=== PATIENT | male | born 1995 | race Caucasian/White ===

== ENCOUNTER 2020-03-21 09:44 | Day surgery (SDC) | payer OTHER ==
[2020-03-21] MEDS ORDERED: MIDAZOLAM 2 MG/2 ML INJ ONE ×2 (10:03→10:43)
[2020-03-21] MEDS ORDERED: FENTANYL CITRATE INJ/PF 100 MCG/2 ML AMPUL ONE ×2 (10:03→10:44)
[2020-03-21] MEDS ORDERED: PROPOFOL INJ 200 MG/20 ML VIAL IV ONE (10:04)
[2020-03-21] MEDS ORDERED: ONDANSETRON HCL INJ/PF 4 MG/2 ML SDV ONE (10:04)
[2020-03-21] MEDS ORDERED: DEXAMETHASONE SOD PHOSPHATE INJ 4 MG/1 ML VIAL ONE (10:04)
[2020-03-21] MEDS ORDERED: CEFAZOLIN 2 GM/D5W RTU 2 GM/50 ML RTUPB IV ONE (10:33)
[2020-03-21] MEDS ORDERED: ROPIVACAINE HCL 0.5% INJ/PF (5 MG/1 ML) 30 ML SDV ONE (10:44)
[2020-03-21] MEDS ORDERED: ONDANSETRON HCL INJ/PF 4 MG/2 ML SDV IV PRN ×2 (13:54→15:03)
[2020-03-21] MEDS ORDERED: DIPHENHYDRAMINE HCL 50 MG/ML VIAL IV PRN (13:54)
[2020-03-21] MEDS ORDERED: OXYCODONE-ACETAMINOPHEN 5-325 MG TABLET PO PRN ×2 (13:54→15:03)
[2020-03-21] MEDS ORDERED: PROMETHAZINE HCL INJ 25 MG/1 ML VIAL IV PRN ×2 (13:54)
[2020-03-21] MEDS ORDERED: MORPHINE SULFATE 10 MG/ML INJ IV PRN (13:54)
[2020-03-21] MEDS ORDERED: FENTANYL CITRATE INJ/PF 100 MCG/2 ML AMPUL IV PRN ×3 (13:54)
--- NOTE | 2020-03-21 15:09 | Discharge Summary ---
Discharge Summary (SDC) - Discharge Final Diagnosis: Left elbow dislocation with radial head fracture, loose bodies lateral ulnar collateral ligament tear. Date of Surgery: 03/21/20 Discharge Date: 03/21/20 Condition: Good Forms: Return to Work Treatment or Instructions: Schedule Follow Up w/ Dr. Manpreet Katz @ [facility] to be seen in 10-14 days or as scheduled [place]: [place]: [place]: Ice and elevate Keep splint clean/dry/intact, do not remove. If your fingers become numb please unwrap the Fernando wrap but leave the splint in place, if the sensation does not return within 30 minutes please return to the emergency department. May begin finger range of motion attempting to make full fist. Please use ibuprofen (Motrin or Advil) 600-800 mg every 8 hours as needed for pain or fever DO NOT TAKE w/ TORADOL may use once TORADOL complete. You may also use acetaminophen (Tylenol) 1000 mg every 4-6 hours as needed for pain or fever. Please be aware that many medications contain acetaminophen, do not exceed a total of 1000 mg of acetaminophen every 6 hours. If ibuprofen and acetaminophen are not sufficient for your pain you may take the Percocet/[place]. Please be aware that the Percocet/[place] does contain Tylenol. Stool softener of choice when on pain medication. USE OF [id number] IBUPROFEN: Ibuprofen (Advil, Nuprin, Medipren, Motrin IB) is a medication for fever and pain control. In addition, it has anti- inflammatory effects which may be beneficial, especially in the treatment of injuries. It's best to take ibuprofen with food. Persons with ulcer disease or allergy to aspirin should notify their physician of this before taking ibuprofen. Ibuprofen can be given every four to six hours, for a total of four doses daily. Age Pain or fever dose Antiinflammatory dose 6-8 yr 200 mg (1 tab) 200 mg (1 tab) 9-11 yr 200 mg (1 tab) 200-400 mg (1-2 tab) 11-14 yr 200-400 mg (1-2 tab) 400 mg (2 tab) 15-adult 400 mg (2 tab) 600 mg (3 tab) ORAL NARCOTIC MEDICATION: You have been given a prescription for pain control. This medication is a narcotic. It's best taken with food, as nausea can result if taken on an empty stomach. Don't operate machinery or drive within six hours of taking this medication. Do not combine this medicine with alcohol, or with any medication which can cause sedation (such as cold tablets or sleeping pills) unless you get permission from the physician. Narcotics tend to cause constipation. If possible, drink plenty of fluids and eat a diet high in fiber and fruits. Please be aware that prescription narcotics also have the potential for abuse. People become addicted to these medications because of the general sense of wellbeing that they induce. This feeling along with a significant reduction in tension, anxiety, and aggression provides a stimulating seductive quality to these drugs. Once your pain is under control, we encourage you to discard your unused narcotics. Prescriptions: Ketorolac Tromethamine [Toradol 10 mg Tablet] 10 mg PO Q8HP PRN #12 tablet PRN Reason: Oxycodone HCl/Acetaminophen [Percocet 7.5-325 mg Tablet] 1 tab PO Q6 PRN #25 tab PRN Reason: Discharge Diet: As Tolerated Respiratory Treatments at Home: Deep Breathing/Coughing, Incentive Spirometer Discharge Activity: No Lifting Over 10 Pounds, No Lifting/Push/Pulling Report the Following to Your Physician Immediately: Fever over 101 Degrees, Unusual Bleeding, Redness, Swelling, Warmth, Increased Soreness
[2020-03-21] MEDS: FENTANYL CITRATE INJ/PF 100 MCG/2 ML AMPUL ONE ×2 (15:10→15:15)
--- NOTE | 2020-03-21 15:16 | Operative Report ---
Operative Report DATE OF SURGERY: 03/21/20 PREOPERATIVE DIAGNOSIS: Left elbow dislocation with radial head fracture, loose bodies lateral ulnar collateral ligament tear. POSTOPERATIVE DIAGNOSIS: Left elbow dislocation with radial head fracture, loose bodies lateral ulnar collateral ligament tear. OPERATION: Removal of loose bodies left elbow with lateral ulnar collateral ligament repair utilizing internal brace SURGEON: MARTHA THOMPSON ANESTHESIA: GA COMPLICATIONS: None ESTIMATED BLOOD LOSS: Minimal PROCEDURE: Indication for above procedure: 24-year-old male who sustained an injury to his left elbow resulting in a fracture dislocation. Elbow was then close reduced. He was then seen at [facility] well radiographs and CT scan were done demonstrating radial head fracture. CT scan demonstrated loose bodies from the radial head fracture at that point we discussed treatment options including operative versus nonoperative intervention after discussing risk and benefits decision was made to proceed with operative treatment. Procedure In Detail: Patient was seen and evaluated in the preoperative holding area. The LEFT upper extremity was initialized and marked. Patient received 2g of Ancef IV for bacterial prophylaxis. Patient was taken back to the operative room where transferred to the operative table and placed under general anesthesia. Once they were adequately anesthetized a nonsterile tourniquet was placed on the upper extremity. A surgical team debriefing was performed ensuring all instrumentation was available, the surgical procedure was discussed with possible concerns reviewed. The upper extremity was prepped with ChloraPrep and draped in a sterile fashion. A timeout was done identifying correct patient, procedure and extremity everyone in attendance agree with this and verbalized no concerns. The extremity was exsanguinated the tourniquet was inflated to 250 mmHg. Longitudinal skin incision was made centered over the lateral epicondyle. Blunt dissection was performed. Any peripheral veins were coagulated Interval between between EDC and ECRB was then utilized. Forearm remained in pronation throughout the majority of the procedure to protect the PIN. Once interval was utilized complete tear of the lateral ulnar collateral ligament was appreciated. Loose bodies from the prior radial head fracture were identified and removed. Joint was copiously irrigated with normal saline. Intervening hematoma was excised. C arm fluoroscopy was then obtained demonstrating successful removal of loose bodies there was small rim of cartilage within the deep soft tissues which is likely adjacent to the PIN and thus this was not removed nor could be visualized. Patient had instability with elbow range of motion at that point decision was made to proceed with lateral ulnar collateral ligament repair. The radial head fracture involves less than 50% of the articular surface with pronation/supination under direct visualization and fluoroscopy there was no evidence of radial head impingement at the proximal radial ulnar joint. No crepitus with range of motion. And thus arthroplasty was not performed nor internal fixation. There was a nondisplaced intra-articular fracture which was unstable under direct stress with a [place] and pickup and thus will be treated conservatively. Under live C-arm fluoroscopy isometric point of the lateral epicondyle was identified. This was then drilled with for a 3.5 mm push lock anchor. A Krakw suture was placed through the lateral ulnar collateral ligament also obtaining fixation within the annular ligament. One limb was placed and then a second limb placed leaving 2 limbs proximally. The 2 limbs were then loaded on the 3.5 mm anchor along with a fiber tape suture this was then secured at the isometric point. Good fixation of the anchor was confirmed with push and pull test. With palpation and C arm fluoroscopy supinator crest was identified. This was once again drilled and tapped. The fiber tape suture was then loaded on the 3.5 mm anchor maintaining reduction of the ulnohumeral and radiocapitellar joint with the forearm in pronation and elbow at 45 degrees of flexion the anchor was implanted obtaining good fixation. Elbow was placed through full range of motion without significant tightness. No evidence of instability with range of motion stress testing. C arm fluoroscopy was obtained demonstrating reduction of the ulnohumeral and radiocapitellar joint. Wound was copiously irrigated with normal saline. Merchant's interval was closed with 0 Vicryl suture. Subcutaneous tissues were closed with 4-0 Monocryl suture. Skin was closed with running subcuticular 4-0 Monocryl reinforced with Dermabond and Steri-Strips. Patient was placed in a posterior elbow splint with the elbow approximately 60 degrees of flexion. Sponge counts, instrument counts, needle counts were correct. Patient was then awoken from anesthesia. Transferred from the operating room table to the operating room stretcher. There was no intraoperative complications patient tolerated procedure well stable to PACU. IMPLANTS: Arthrex 3.5 mm swivel lock anchors Postop plan: Patient will begin occupational therapy on postop day #10. Will be fitted for a hinged elbow brace prior to beginning therapy locked at 60 degrees of flexion un til therapy begins. Will begin as per lateral ulnar collateral ligament repair.
[2020-03-21] MEDS: MEPERIDINE HCL/PF INJ 25 MG/1 ML DISP.SYRIN IV PRN ×2 (15:25→15:30)
[2020-03-21] MEDS ORDERED: MEPERIDINE HCL/PF INJ 25 MG/1 ML DISP.SYRIN ONE (15:25)
--- NOTE | 2020-03-21 15:31 | RADIOLOGY REPORT (SQ) ---
EXAM DESCRIPTION: ELBOW LEFT AP/LATERAL IMAGES COMPLETED DATE/TIME: 03/21/2020 3:20 pm REASON FOR STUDY: LEFT ELBOW ORIF S53.105A UNSP DISLOCATION OF LEFT ULNOHUMERAL JOINT, INIT EN COMPARISON: None. FLUOROSCOPY TIME: 1.0 minutes 5 images saved to PACS. TECHNIQUE: Intra-operative images acquired during surgical procedure to evaluate progress. NUMBER OF IMAGES: 5 LIMITATIONS: None. FINDINGS: Fluoroscopic images centered over the elbow IMPRESSION: IMAGE(S) OBTAINED DURING PROCEDURE. COMMENT: Quality ID [id number]: Final reports for procedures using fluoroscopy that document radiation exp osure indices, or exposure time and number of fluorographic images (if radiation exposure indices are not available) Please consult full operative report of the attending physician for description of the procedure. TECHNICAL DOCUMENTATION: JOB ID: [id number] 2010 [facility]- All Rights Reserved Reading location - IP/workstation name: [email or web address]
--- NOTE | 2020-03-21 15:32 | RADIOLOGY REPORT (SQ) ---
EXAM DESCRIPTION: NO CHG FLUORO COMPLETE DATE/TIME: 03/21/2020 3:20 pm REASON FOR STUDY: LEFT ELBOW ORIF S53.105A UNSP DISLOCATION OF LEFT ULNOHUMERAL JOINT, INIT EN FINDINGS: Please see combined report for performance of procedure and radiologic supervision and int erpretation. IMPRESSION: Please see combined report for performance of procedure and radiologic supervision and i nterpretation. Reading location - IP/workstation name: [email or web address]
[2020-03-21] MEDS ORDERED: OXYCODONE-ACETAMINOPHEN 5-325 MG TABLET ONE (15:34)
[2020-03-21] MEDS ORDERED: HYDROMORPHONE HCL INJ/PF 2 MG/ML AMPULE ONE (16:19)
[2020-03-21 17:50] VITALS: BP 120/68
== END 2020-03-21 17:50 | disposition home or self-care (01) ==
LOC: OROUT 09:44
PROVIDERS: ATTEND Orthopaedic Surgery
DX: S53.105A Unspecified dislocation of left ulnohumeral joint, initial encounter (principal); S53.32XA Traumatic rupture of left ulnar collateral ligament, initial encounter; W17.89XA Other fall from one level to another, initial encounter; Y93.9 Activity, unspecified; M24.022 Loose body in left elbow; Z03.818 Encounter for observation for suspected exposure to other biological agents ruled out
CPT/HCPCS: 87635; 73070; 24343; 24101; J2795; J2250; J1100; J3010; J2175; J1170; J2405; J2704; J0690; C9803; 01830; 64415; 76942